=== PATIENT | female | born 1965 | race Caucasian/White ===

== ENCOUNTER → 2016-05-07 | Outpatient (CLI) | payer BC | END | disposition home or self-care (01) | LOC: C.LABSPEC 12:25 | PROVIDERS: ATTEND Family Medicine | DX: J02.9 Acute pharyngitis, unspecified (principal) ==

== ENCOUNTER 2023-07-31 05:08 | Observation (INO) ==
--- NOTE | 2023-07-15 13:02 | Anesthesiology Consultation ---
Date of Service July 15, 2023 Assessment & Plan (1) Encounter for pre-operative examination: - Infectious disease screening: Per assessment on 07/15/23: No known infectious disease contacts or current infectious disease symptoms. No noted recent Covid positive test result. - Outpatient joint pathway: Per OR booking comments, plan for outpatient joint program. Patient is an acceptable candidate to proceed as planned outpatient joint pathway pending perioperative course. Surgeon's office arranging post-op home management. - S/P Left TSA (04/17/23): LMA#4, atraumatic + regional at [facility] Chart Review Chart Review: Acceptable Risk for Surgery and Patient NOT seen in Pre Admission Testing History Surgery Operation Date: 07/31/23 10:00 Proposed Procedures p OP: Right Anatomic Total Shoulder Arthroplasty versus - Ho Barrera DO s Right Reverse Total Shoulder Arthroplasty - Ho Barrera DO Height/Weight Height: 5 ft 1 in Weight: 49.895 kg Allergies Allergy/AdvReac Type Severity Reaction Status Date / Time Penicillins Allergy Severe Anaphylaxis Verified 07/15/23 12:28 Medications Home Medications Medication Instructions Recorded Confirmed Last Taken multivitamin 1 tab PO QAM 03/06/23 07/15/23 04/10/23 Past Medical History Medical History History of UTI 05/2023, asymptomatic s/p completion of abx per PAT RN phone interview 07/15/23 Osteoarthritis of shoulders, bilateral Past Family History Family History Aunt Ovarian cancer Denies family history of Prostate cancer Diabetes Myocardial infarction Breast cancer Colorectal cancer Hypertension Past Surgical History Surgical History H/O section History of shoulder replacement Left TSA (04/17/23): LMA#4, atraumatic + regional at [facility] Hx of tonsillectomy Social History Smoking Status: Never smoker Do You Dip or Chew Tobacco: No Hx Alcohol Use: Yes Alcohol type: wine alcohol intake frequency: a few times a month Hx Substance Use: No substance use type: does not use Lab Results Anesthesia Preop Results Results Anesthesia Widget: WBC 7.82 K/ul (4.8-10.8) 06/30/23 Hgb 13.1 g/dl (12.0-16.0) 06/30/23 Hct 40.4 % (37.0-47.0) 06/30/23 Plt 207 K/uL (130-400) 06/30/23 Na 138 mmol/L (136-145) 06/30/23 K 3.8 mmol/L (3.5-5.1) 06/30/23 Cl 101 mmol/L (98-107) 06/30/23 CO2 30 mmol/L (21-32) 06/30/23 BUN 13 mg/dl (6-23) 06/30/23 Creat 0.61 mg/dl (0.6-1.2) 06/30/23 Glucose Level 94 mg/dl (70-99(Fasting)) 06/30/23 PT 10.6 Seconds (9.0-12.0) 06/30/23 PTT 31 Seconds (21-31) 06/30/23 INR 1.0 (0.9-1.1) 06/30/23 Blood Type O Positive 06/30/23 Antibody Screen NEGATIVE 06/30/23 Testing Electrocardiogram Date: 03/18/23 NSR at 79bpm. "Normal ECG" Chest X-Ray Date: 03/18/23 FINDINGS: Cardiomediastinal and hilar silhouettes are within normal limits. No pneumothorax, pleural effusion or airspace consolidation. Bones appear grossly intact. Degenerative changes of the shoulders and spine. IMPRESSION: No acute process.
--- NOTE | 2023-07-30 13:11 | History & Physical Report ---
Date of Service July 30, 2023 Assessment & Plan (1) Osteoarthritis of right shoulder: We will proceed with a right total shoulder arthroplasty. Postoperatively she will be placed in a sling and will be part of our outpatient joint protocol. She will be given oral pain medications. She plans to use energy physical therapy upon discharge. History of Present Illness Chief Complaint: Osteoarthritis of the right shoulder. Primary Care Provider: RICARDO Zayas Harper is a pleasant 57-year-old female who has been doing with chronic bilateral shoulder pain. I did a left shoulder replacement on her several months ago. She is done very well with that. Unfortunately she is now dealing with right shoulder pain. X-rays and clinical examination have been diagnostic for advanced arthritis of the right shoulder. After failing conservative treatment, she has elected to proceed with a right total shoulder arthroplasty.. Allergies Allergy/AdvReac Type Severity Reaction Status Date / Time Penicillins Allergy Severe Anaphylaxis Verified 07/15/23 12:28 Home Medications Medication Instructions Recorded Confirmed Type multivitamin 1 tab PO QAM 03/06/23 07/15/23 History Past Med/Surg History Medical History History of UTI 05/2023, asymptomatic s/p completion of abx per PAT RN phone interview 07/15/23 Osteoarthritis of shoulders, bilateral Surgical History History of shoulder replacement Left TSA (04/17/23): LMA#4, atraumatic + regional at [facility] Hx of tonsillectomy H/O section Family History Aunt Ovarian cancer Denies family history of Prostate cancer Diabetes Myocardial infarction Breast cancer Colorectal cancer Hypertension Social History Smoking Status: Never smoker Second Hand Exposure: No; Do You Dip or Chew Tobacco: No; Hx Alcohol Use: Yes Alcohol type: wine Hx Substance Use: No Preferred Language: Sinhala Communication Ability: Effective Nurse Practitioner Physician Assistant Required: No Beliefs That Will Affect Care: None marital status: Current Living Situation: Spouse and Family current occupational status: employed current occupation: Works for [employer] How many Children do You have: 2 Feels Safe at Home: Yes Childhood Exposure to Second-Hand Smoke: No Diet: regular caffeine: Yes Dental Care, Regularly: Yes Physical Activity Frequency: Daily Seatbelt Use: always Sunscreen Use: Yes Assistive Devices: Glasses Review of Systems All systems reviewed & are unremarkable except as noted in HPI & below. Physical Exam On physical examination of the right shoulder, she has decreased range of motion and crepitus throughout.. Constitutional WD/WN, vitals as above Eyes PERRL, conjunctivae normal, anicteric sclerae ENMT external ear and nose normal, oropharynx normal Neck trachea midline, no thyromegaly Respiratory normal respiratory effort Cardiovascular RRR, no murmur, no edema Gastrointestinal (Abdomen) normal bowel sounds, soft, nontender, no hepatosplenomegaly Psychiatric A+Ox3, euthymic affect Results & Data Results & Data Laboratory Results . Diagnostic Findings X-rays of the right shoulder show advanced osteoarthritis with joint space narrowing, osteophyte formation, and ixbz-fo-ehda articulation. PG Care Time/CCT Total # of Minutes Spent Total Time Spent with Patient: Total time spent is greater than 50% in coordination of care (as documented) at patient's floor/unit and/or counseling patient: Coding Level of Care Code None Diagnoses Osteoarthritis of right shoulder M19.011
[~2023-07-31 05:08] MED LIST: ALLERGY Noted to ORDERED Medication SCH
[2023-07-31] MEDS: LR 15ML/HR IV SCH (06:01)
[2023-07-31] MEDS: FAMOTIDINE 20 MG TAB PO SCH (06:02)
[2023-07-31] MEDS: GABAPENTIN 600 MG DOSE PO SCH (06:02)
[2023-07-31] MEDS: ACETAMINOPHEN 500 MG TAB PO SCH ×2 (06:03→15:19)
[2023-07-31] MEDS: dexAMETHasone**PF** 10 MG/ML VIAL IV SCH (06:04)
[2023-07-31] MEDS ORDERED: BUPIVACAINE 0.5 % 5 MG/1 ML PF 10ML VIAL ONE (06:13)
--- NOTE | 2023-07-31 06:19 | History & Physical Bridge Note ---
Date of Service July 31, 2023 History & Physical Bridge Note I have examined the patient, reviewed the History & Physical and in the interval since the performance of the History & Physical I have noted the following changes of clinical significance: no changes noted
[2023-07-31] MEDS ORDERED: PROPOFOL IV EMULSION 10 MG/ML 20 ML VIAL IV ONE (06:36)
[2023-07-31] MEDS ORDERED: fentaNYL citrate PF 100 MCG/2 ML VIAL ONE (06:36)
[2023-07-31] MEDS ORDERED: ONDANSETRON INJ 2 MG/ML 2 ML VIAL ONE (06:36)
[2023-07-31] MEDS ORDERED: DEXAMETHASONE SOD INJ 4 MG/ML VIAL ONE ×2 (06:36)
[2023-07-31] MEDS ORDERED: LIDOCAINE 2% 2 ML VIAL/AMP(20MG/ML) INFIL ONE (06:36)
[2023-07-31] MEDS ORDERED: MIDAZOLAM HCL 1 MG/ML 2ML VIAL ONE (06:36)
[2023-07-31] MEDS ORDERED: ATROPINE SULFATE 0.1 MG/ML 10ML SYR IV PRN (06:41)
[2023-07-31] MEDS ORDERED: fentaNYL citrate PF 100 MCG/2 ML VIAL IV PRN (06:41)
[2023-07-31] MEDS ORDERED: ePHEDrine sulfate 50 MG/ML AMP IV PRN (06:41)
[2023-07-31] MEDS ORDERED: ONDANSETRON INJ 2 MG/ML 2 ML VIAL IV PRN ×2 (06:41→12:37)
[2023-07-31] MEDS ORDERED: PROMETHAZINE HCL 6.25 MG in SODIUM CHLORIDE 0.9% 50 ML IV PRN (06:41)
[2023-07-31] MEDS: TRANEXAMIC ACID 1,000 MG **IV Pre-op IV SCH (06:44)
[2023-07-31] MEDS: ceFAZolin 2000MG 2,000 MG/15 ML SYR IV ONE (06:58)
[2023-07-31] MEDS ORDERED: PHENYLEPHRINE 100MCG/ML 10ML SYR IV ONE (07:12)
[2023-07-31] MEDS ORDERED: ePHEDrine sulfate 50 MG/5 ML SYR ONE (07:33)
[2023-07-31] MEDS: ROPIV 0.5% 246mg, Ketorolac 30mg, EPINEPHrine 0.5mg in NSS INFIL SCH (07:40)
[2023-07-31] MEDS: ceFAZolin 2,000 MG/15 ML IV PUSH IV ONE (07:41)
[2023-07-31] MEDS: TRANEXAMIC ACID 1,000 MG **IV Intra-op IV SCH (07:52)
[2023-07-31] MEDS ORDERED: KETOROLAC 30 MG/ML VIAL ONE (07:52)
[2023-07-31] MEDS ORDERED: SUGAMMADEX SODIUM 200 MG/2 ML VIAL IV ONE (07:54)
--- NOTE | 2023-07-31 08:06 | Operative Report ---
PG Post Operative Report Pre & Post Diagnosis Operation Date: 07/31/23 07:00 Pre-Op Diagnosis: Right Shoulder Osteoarthritis with tendinopathy long head of the biceps tendon Post-Op Diagnosis: Right Shoulder Osteoarthritis with tendinopathy long head of the biceps tendon I identified the patient and participated in the time-out.: Yes Procedure Operation Date: 07/31/23 07:00 Actual Procedures p Right Anatomic Total Shoulder Arthroplasty (Right) with open biceps tenodesis as a distinct and separate procedure (modifier 59)- Ho Barrera DO Surgeon Ho Barrera DO Automatic Oven Operator Ho Cohen PA-C Estimated Blood Loss 100 Findings Consistent with Post-Op Diagnosis Specimens Right humeral head Description of Procedure A CPT code modifier 59: The long head of the biceps tendon was enlarged and inflamed consistent with tendinopathy. A tenodesis was opted. This was a separate and distinct portion of the procedure. For these reasons, a CPT code modifier 59 will be added to this case. Implants used: I used a [employer] Comprehensive total shoulder arthroplasty system with a size 11 press fit micro humeral stem, a size 42 x 18 eccentric humeral head, and a 2 glenoid with a trabecular metal peg. The glenoid was cemented in place with Palacos G cement. Mirlande arrived at [facility] for the above procedure. She was seen in the preoperative holding area and the operative extremity was identified and signed. She was given a preoperative antibiotic, TXA, and an interscalene nerve block. She was taken back to the operating room, laid on table in supine position, and put under general anesthesia. She was then put into the beachchair position. The shoulder was then prepped and draped in sterile fashion. A timeout was done and the patient and the operative extremity was properly identified. A deltopectoral approach was used. Dissection was taken down through the fascia and the deltoid was retracted laterally and the conjoined tendon was retracted medially. The anterior shoulder was exposed. The biceps groove was opened up and the biceps tendon was examined extensively. The biceps tendon demonstrated enlargement and inflammatory changes consistent with longstanding inflammation in the context of osteoarthritis. The long head of the biceps tendon was then tenodesed to the upper border of the pectoralis major. This was a separate and distinct portion of the procedure. The subscapularis was then released off the lesser tuberosity with a centimeter of cuff tissue remaining. The inferior capsule was released and the humeral head was dislocated. The rotator cuff was inspected and intact. A canal finding reamer was sent down the center of the humeral canal. Sequential reaming up to a size 11 reamer was done. Offset reamer a proximal humeral resection guide was placed. The proximal humerus was resected at 135 of inclination and 30 of retroversion. Inferior osteophytes were then removed and the glenoid was exposed. Time was spent doing an appropriate labral release. The glenoid measured to be a size 2. A 3.2 mm Steinmann pin was placed in the central hole of the glenoid vault pin guide. The glenoid was then reamed with a propeller reamer. The central post cutter was then used to prepare for the central boss. The cannulated peripheral peg drill guide was then placed and 3 peg holes were drilled. The final size 2 glenoid was then cemented in place with Palacos G cement. Surrounding soft tissues were then injected with 100 cc of an orthopedic pain control cocktail. Once cement had dried the proximal humerus was once again exposed. Sequential broaching of the humerus up to a size 11 broach was done. Off that broach a size 42 x 18 eccentric humeral head was trialed. The shoulder was then reduced, brought through a full range of motion, and felt to be stable. The shoulder was then dislocated and the broach was removed. The final size 11 micro humeral stem implant was then impacted into place. A size 42 x 18 eccentric humeral head was then impacted onto the humeral stem. The shoulder was then reduced and once again brought through a full range of motion and felt to be stable. The subscapularis was then tenodesed back to the lesser tuberosity with transosseous FiberWire sutures and side to side sutures with the arm in 45 of external rotation. 2 sutures were placed in the lateral rotator interval. A dilute betadyne lavage was then done for 3 minutes. The joint was then irrigated with normal saline solution. Hemostasis was obtained. The interval was closed with 2-0 Vicryl suture. The skin was closed with 2-0 Vicryl and radha. A Silverlon dressing was placed and the arm was rested in a regular arm sling. She was then extubated and transferred to a hospital bed. She was taken to the postanesthesia care unit in stable condition. She tolerated the procedure well. Ho Cohen PA-C, was present for the entire procedure. He was critical for patient positioning, prepping, draping, retraction exposure, wound closure and application of sterile dressing. I attest to the content of the Intraoperative Record and any orders documented therein. Any exceptions are noted below.
[2023-07-31] MEDS ORDERED: oxyCODONE/ACETAMINOPHEN 5mg/325mg TAB PO PRN (08:21)
--- NOTE | 2023-07-31 09:13 | XRay Report ---
XR shoulder RT min 2V routine CLINICAL HISTORY: Post shoulder surgery COMPARISON STUDY: None. FINDINGS: Status post right total shoulder arthroplasty. The hardware appears intact. No fracture or dislocation. Skin rahda are in place. IMPRESSION: Status post right total shoulder arthroplasty. No evidence for hardware complication. ACT 112: Negative or not required by law. Electronically signed by: Ryan Thompson M.D. 07/31/2023 9:11 AM
--- NOTE | 2023-07-31 10:15 | Hospitalist Consultation ---
Date of Consultation July 31, 2023 Assessment & Plan (1) Acute electrocardiogram changes: While in PACU on monitor and tachycardic [id number] concern for ST depressions on monitor Baseline EKG from 03/18/2023: Normal sinus rhythm. QTc 417. Normal concordant T wave inversion in V1/aVR. Upright T wave in lead III. No ischemic changes or abnormalities noted Serial EKGs reviewed. These were obtained post 100 mg of esmolol with improved rate control. Sinus tach. QT 504 --> [address] segment ch anges greater than 1 mm. Patient does have T wave changes in the anterior leads, III, aVF. 2 November. Troponin is 2.3 while in PACU, 2-hour repeat troponin has been ordered Echo pending She has no symptoms at time of assessment and denies any chest pain/chest pressure/shortness of breath earlier postoperatively. She is able to go up stairs at work and at home and walk without any chest pain, chest pressure, dyspnea, diaphoresis suspicious for angina. She has no cardiac history, and has no history of hypertension/diabetes/tobacco use/recreational drug use. She has a family history of heart failure in [facility] [place] at age 80 otherwise no history of heart disease/ischemic heart disease in her family. No history of dysrhythmia, sudden cardiac , or heart problems. She is saturating normally on room air and has no history of blood clots/clotting disorders. No pleuritic pain. Recommend overnight monitoring on telemetry. BMP/CBC ordered and trended. Diet advanced. Nitro on-call for any symptoms, repeat EKG as needed otherwise we will repeat in the morning. Cardiology following. Sinus tachycardia postoperatively likely from sympathetic response. No signs of bleeding/hypovolemia. Labs are pending. She is not febrile, septic, or hypoxic. Responded well to 1 dose of esmolol in the PACU. If>130 w/ no signs of volume depletion as cause, or ischemic sx --> +MTP otherwise will monitor and expect to gradually improve. (2) Osteoarthritis of right shoulder: S/p right TKA 07/31/2023 S/p interscalene block and general with reversal. Has not yet had sensation/strength return to the right arm/hand No intraoperative complications Postoperatively with concerns for EKG ST changes with associated tachycardia while in the PACU managed as below Pain control, DVT prophylaxis, activity recommendations per primary team (3) Status post total replacement of left shoulder: Noted. Patient did not have any anesthetic complications or EKG changes noted at time of her left shoulder replacement in February History of Present Illness Attending Physician: Ho Barrera DO History of Present Illness Mirlande is a 57yo F with a PMHx of bilateral osteoarthritis of the shoulder who presentedFor right total shoulder arthroplasty with open biceps tenodesis due to right shoulder OA. Intraoperatively there was concern for ST changes? Depressions patient was recommended for overnight observation with medical consultation. Preoperative comparison EKG 03/18/2023 was normal sinus rhythm. Concordant T wave inversion in V1 without contiguous T wave inversions. No signs of territorial ischemia. Case was discussed with anesthesia. Patient presented and had a right total arthroplasty with interscalene block and general anesthesia followed by reversal. No operative complications and was doing well however in recovery was tachycardic to [id number] on the monitor. Rhythm was concerning for potential ST depressions on monitor, patient received esmolol 100mg IV x1. Rate subsequently with improvement. Twelve-lead EKG was obtained And had concerning T wave changes? Anterior ischemia and a conduction change which was discussed with cardiology anesthesia. Twelve-lead EKG did appear d ifferent from her baseline and was recommended for observation. Patient has been asymptomatic and has not had any chest pain, chest pressure, dyspnea. Patient was seen in the PACU . She reports that she has no medical history of problems other than osteoarthritis for which she is taking Tylenol intermittently and for which she presented for right shoulder replacement. She reports in February she had her left shoulder replacement and tolerated this well and had no difficulty with anesthesia at that time. She reports she does not have any history of heart disease. She plays with 3 grandchildren and is able to go up 13 stairs and flights of stairs at work, and able to walk normally without any shortness of breath, difficulty breathing, sweats, chest pain, or chest pressure. She has not had any orthopnea. She has not had any leg swelling. She reports a family history of heart failure in her maternal grandmother in her 80s, however has no other family history of cardiac disease. Denies personal and family history of diabetes. Reports a family history of whitecoat hypertension in her mother otherwise no history of blood pressure problems. Denies history of blood clots and denies family history of bleeding/clotting disorders She is allergic to penicillin no other drug allergies She does not use any tobacco products, drinks socially and small amounts for moderation on weekends, and does not use any recreational drugs including marijuana/cocaine. She had a UTI 1 month ago which was initially treated with Bactrim and transition to Cipro based on sensitivities which has completely resolved, denies other illnesses. She denies fever, chills, sweats, cough, shortness of breath, muscle aches/myalgias, nausea, vomiting, diarrhea, constipation. She reports she takes no prescription medications. She takes some supplemental vitamins. She used to use a natural herbal remedy for hot flashes but has not taken this in several weeks. She is not sure the exact name of what this remedy was but notes she has not been on it in some time. Full code Allergies Allergy/AdvReac Type Severity Reaction Status Date / Time Penicillins Allergy Severe Anaphylaxis Verified 07/31/23 05:38 Home Medications Medication Instructions Recorded Confirmed Type multivitamin 1 tab PO QAM 03/06/23 07/31/23 History cefadroxil 500 mg capsule 500 mg PO BID 10 days #20 caps 07/31/23 Rx celecoxib 200 mg capsule (Celebrex) 200 mg PO Q12H PRN pain #30 caps 07/31/23 Rx oxycodone-acetaminophen 5 mg-325 1 tab PO Q6H PRN pain #30 tabs 07/31/23 Rx mg tablet (Percocet) Patient History Medical History History of UTI 05/2023, asymptomatic s/p completion of abx per PAT RN phone interview 07/15/23 Osteoarthritis of shoulders, bilateral Surgical History History of shoulder replacement Left TSA (04/17/23): LMA#4, atraumatic + regional at [facility] Hx of tonsillectomy H/O section Family History Aunt Ovarian cancer Denies family history of Prostate cancer Diabetes Myocardial infarction Breast cancer Colorectal cancer Hypertension Social History Smoking Status: Never smoker Second Hand Exposure: No; Do You Dip or Chew Tobacco: No; Hx Alcohol Use: No Hx Substance Use: No Preferred Language: Lithuanian Communication Ability: Effective Front Office Representative Required: No Beliefs That Will Affect Care: None marital status: Current Living Situation: Spouse current occupational status: employed current occupation: Works for [employer] How many Children do You have: 2 Feels Safe at Home: Yes Safety Concerns: Feels Safe At This Time Childhood Exposure to Second-Hand Smoke: No Diet: regular caffeine: Yes Dental Care, Regularly: Yes Physical Activity Frequency: Daily Seatbelt Use: always Sunscreen Use: Yes Assistive Devices: Glasses Physical Exam Physical Exam: General: A&Ox3. NAD. Cooperative. HEENT: Atraumatic, normocephalic. Vision/hearing intact. Pupils equal. Pulm: CTAB A&P. -wheezes, -rales, -rhonchi. Symmetrical chest rise. No increased work of breathing. No respiratory distress. Cardiac: RRR, -mrg. Radial pulses intact and symmetrical. Ext: LE warm and dry bilaterally no pitting edema. L hand with 5/5 calf skinner strength, intact sensation to soft tough. R hand without strength/sensation post interscalene block. Has not yet had strength/sensation return. R shoulder with postop dressing in place CDI and arm in sling. Results & Data Results & Data Vital Signs (Past 12 Hours) Vital Signs Temp Pulse Pulse Resp BP Pulse Ox O2 Del Method 07/31/23 09:55 105 H 17 122/73 97 Room Air 07/31/23 09:45 36.4 C L 95 H 18 115/73 96 Room Air 07/31/23 09:35 98 H 18 114/73 98 Room Air 07/31/23 09:25 101 H 13 112/73 98 Room Air 07/31/23 09:15 97 H 12 113/67 94 Room Air 07/31/23 09:05 97 H 13 114/72 98 Room Air 07/31/23 08:55 97 H 13 119/74 99 Room Air 07/31/23 08:45 100 H 16 124/75 97 Oxymask 07/31/23 08:35 93 H 14 118/66 100 Oxymask 07/31/23 08:26 36 C L 119 H 75 21 107/81 100 Oxymask 07/31/23 05:52 36.6 C 75 17 117/70 100 Room Air O2 Flow Rate 07/31/23 09:55 07/31/23 09:45 07/31/23 09:35 07/31/23 09:25 07/31/23 09:15 07/31/23 09:05 07/31/23 08:55 07/31/23 08:45 3 07/31/23 08:35 6 07/31/23 08:26 6 07/31/23 05:52 PG Care Time/CCT Total # of Minutes Spent Total Time Spent with Patient: Total time spent is greater than 50% in coordination of care (as documented) at patient's floor/unit and/or counseling patient: Coding Level of Care Code 82353 IN/OBS CONSULT LVL 4,60M Diagnoses Acute electrocardiogram changes R94.31 Osteoarthritis of right shoulder M19.011 Status post total replacement of left shoulder Z96.612
[2023-07-31] MEDS ORDERED: NITROGLYCERIN SL 0.4 MG/TAB TAB SL PRN (10:51)
[2023-07-31 12:10] LABS: Hematocrit (blood only) 37.5 % (37.0-47.0); Hemoglobin 12.7 g/dl (12.0-16.0); Mean Corpuscular Hemoglobin 30.5 pg (25.0-34.0); Mean Corpuscular Hgb Conc 33.9 g/dL (32.0-36.0); Mean Corpuscular Volume 89.9 fL (80.0-100.0); Mean Platelet Volume 10.7 fL (9.4-12.4); Platelet Count 214 K/uL (130-400); RDW Coefficient of Variation 13.6 % (11.5-14.5); RDW Standard Deviation 45.1 fL (36.4-46.3); Red Blood Count 4.17 M/uL (4.20-5.40); White Blood Count 10.59 K/ul (4.8-10.8)
[2023-07-31 12:37] LABS: Basophils # (auto) 0.01 K/uL (0.00-0.20); Basophils % (auto) 0.1 %; Immature Granulocytes # (auto) 0.03 K/uL (0.01-0.20); Immature Granulocytes % (auto) 0.3 %; Lymphocytes # (auto) 0.35 K/uL (1.20-3.40); Lymphocytes % (auto) 3.3 %; Monocytes # (auto) 0.11 K/uL (0.11-0.59); Neutrophils # (auto) 10.09 K/uL (1.40-6.50); Neutrophils % (auto) 95.3 %
[2023-07-31] MEDS ORDERED: NALOXONE HCL 0.4 MG/1 ML VIAL/CARP IV PRN (12:37)
[2023-07-31] MEDS ORDERED: bisacodyL 10 MG SUPP PR PRN (12:37)
[2023-07-31] MEDS ORDERED: MAGNESIUM HYDROXIDE SUSP 30 ML UDC PO PRN (12:37)
[2023-07-31] MEDS ORDERED: HYDROmorphone INJ 0.5 MG/0.5 ML SYR IV PRN (12:37)
[2023-07-31] MEDS ORDERED: METOCLOPRAMIDE HCL INJ 5 MG/ML 2 ML VIAL IV PRN (12:37)
[2023-07-31 12:39] LABS: BUN Creatinine Ratio 21.2 (10-20); Calcium 9.1 mg/dl (8.6-10.3); Creatinine Clr Calc Pharmacy 71.8 ml/min; Est GFR (African American) 114.5 ml/min; Est GFR (Non-African American) 98.8 ml/min; Magnesium 1.9 mg/dl (1.7-2.4)
[2023-07-31] MEDS: ESMOLOL HCL INJ 10 MG/ML 10ML VIAL IV ONE (12:45)
[2023-07-31] MEDS: SODIUM CHLORIDE 0.9% 1,000 ML IV SCH (12:45)
[2023-07-31] MEDS: ORTHO JOINT ANESTHETIC ONE (12:45)
--- NOTE | 2023-07-31 12:52 | Anesthesiology Progress Note ---
Date of Service July 31, 2023 Anesthesia Post Procedure Vital Signs Vital Signs: Temp Pulse Pulse Resp BP Pulse Ox O2 Del Method 07/31/23 12:43 37.0 C 111 H 15 104/67 93 Room Air 07/31/23 12:05 108 H 16 113/65 95 Room Air 07/31/23 11:35 113 H 16 115/73 95 Room Air 07/31/23 10:55 112 H 16 128/81 94 Room Air 07/31/23 10:40 113 H 20 116/74 96 Room Air 07/31/23 10:25 110 H 15 127/75 97 Room Air 07/31/23 10:10 100 H 13 115/74 95 Room Air 07/31/23 09:55 105 H 17 122/73 97 Room Air 07/31/23 09:45 36.4 C L 95 H 18 115/73 96 Room Air 07/31/23 09:35 98 H 18 114/73 98 Room Air 07/31/23 09:25 101 H 13 112/73 98 Room Air 07/31/23 09:15 97 H 12 113/67 94 Room Air 07/31/23 09:05 97 H 13 114/72 98 Room Air 07/31/23 08:55 97 H 13 119/74 99 Room Air 07/31/23 08:45 100 H 16 124/75 97 Oxymask 07/31/23 08:35 93 H 14 118/66 100 Oxymask 07/31/23 08:26 36 C L 119 H 75 21 107/81 100 Oxymask 07/31/23 05:52 36.6 C 75 17 117/70 100 Room Air O2 Flow Rate 07/31/23 12:43 07/31/23 12:05 07/31/23 11:35 07/31/23 10:55 07/31/23 10:40 07/31/23 10:25 07/31/23 10:10 07/31/23 09:55 07/31/23 09:45 07/31/23 09:35 07/31/23 09:25 07/31/23 09:15 07/31/23 09:05 07/31/23 08:55 07/31/23 08:45 3 07/31/23 08:35 6 07/31/23 08:26 6 07/31/23 05:52 Transfer of Care Handoff Completed per policy Notes Mental Status: alert / awake / arousable and participated in evaluation Patient Amnestic to Procedure: Yes Nausea / Vomiting: adequately controlled Pain: adequately controlled Airway Patency, RR, SpO2: stable & adequate BP & HR: see Notes below Hydration State: stable & adequate Anesthetic Complications: no major complications apparent, see Notes below and Pt Satisfied with anesthetic care Notes: Patient had an uneventful surgery and anesthetic to include general anesthesia and an interscalene nerve block. In recovery, EARLY CHILDHOOD TEACHER ASSISTANT noted patient was mildly tachycardic with what appeared to be ST depressions on monitor. Esmolol was given and ECG completed. ECG showed prolonged QT and slight change when compared to previous ECG done in February 2023 (new ECG from today showing possible ischemic changes). Patient denied any chest pain/pressure/SOB/vision changes/dizziness/lightheadedness. Re-examined patient 20 min later and HR in low 100's and another ECG done. QT not as prolonged but still showing ECG changes. Briefly spoke to on-call [facility] graduate fellow and he suggested patient have inpatient stay with trending of troponins and hospitalist input as patient could get an inpatient echo. She will be placed on continuous telemetry and she agreed to plan. was updated and all questions were answered. Patient was transferred in stable condition.
[2023-07-31] MEDS: LR 60ML/HR IV SCH (13:01)
[2023-07-31] MEDS: ceFAZolin 2000MG 2,000 MG/15 ML SYR IV SCH (15:19)
--- NOTE | 2023-07-31 17:31 | XCELERA ---
[id number]
--- NOTE | 2023-07-31 17:40 | Cardiology Consultation ---
Date of Consultation July 31, 2023 Assessment & Plan (1) Acute electrocardiogram changes: (2) Prolonged QT interval: Plan ASSESSMENT/PLAN: 1. ECG abnormality/change: Discussed findings on ECG. No symptoms to suggest heart failure or ischemia. Propofol and Sugammadex can both cause ST changes and prolonged QT. It is likely that her ECG changes are related to medications used around the time of her surgery. Electrolytes were unremarkable. High- sensitivity troponin has been undetectable x 3. Echo demonstrated no structural abnormalities. Can repeat ECG in the morning and if no symptoms or remarkable events, no further cardiac workup necessary at this time. 2. Prolonged QT: Repeat ECG in the morning on 08/01/2023. Avoid medications that can prolong QT. No arrhythmia on monitor. Baseline QT was normal. Likely related to medical therapy such as propofol and sugammadex. 3. Disposition: Cardiology will sign off at this time. Call for any further questions or concerns. I am away from the hospital after 5 PM on 07/31/2023. Please call on-call cardiology with questions or concerns. Thank you for allowing me to participate in the care of your patient. Please call for any other questions or concerns. Sincerely, Rommel Isreal M.D. History of Present Illness Reason for Consultation: post op ECG changes Requesting Physician: Ho Cohen PA-C Attending Physician: Ho Barrera DO History of Present Illness Mrs. Martinez is a very pleasant 57-year-old female who was admitted on 07/31/2023 following elective right shoulder surgery with Dr. Barrera. Following surgery, anesthesia noted ST changes on telemetry. ECG was done which demonstrated sinus rhythm but inferior and anterior ST/T wave abnormalities, with prolonged QT. QT and ST/T wave abnormalities or different compared to preop ECG. She was admitted for observation. Recommended that they obtain echocardiogram, which was performed. Serial troponins were also ordered. She denies chest pain, shortness of breath, or other cardiac symptoms at that time. She states that even preop, she denies chest pain, shortness of breath, syncope, near syncope, palpitations, edema, or bleeding. She does not exercise but is active, including up and down stairs at work. She is able to do these activities without chest pain or shortness of breath. Patient was seen earlier this evening. Review of systems: As above. Review of systems otherwise negative/unremarkable. Family history: No known premature CAD. Social history: She denies smoking. Consumes alcohol most days of the week, 1 t o 2 glasses of wine during the weekdays and more on the weekends. She denies drug abuse. She lives at home with her . She has a son and a daughter. She works at a school. Her was present at the bedside. Allergies Allergy/AdvReac Type Severity Reaction Status Date / Time Penicillins Allergy Severe Anaphylaxis Verified 07/31/23 05:38 Home Medications Medication Instructions Recorded Confirmed Type multivitamin 1 tab PO QAM 03/06/23 07/31/23 History cefadroxil 500 mg capsule 500 mg PO BID 10 days #20 caps 07/31/23 Rx celecoxib 200 mg capsule (Celebrex) 200 mg PO Q12H PRN pain #30 caps 07/31/23 Rx oxycodone-acetaminophen 5 mg-325 1 tab PO Q6H PRN pain #30 tabs 07/31/23 Rx mg tablet (Percocet) Patient History Medical History History of UTI 05/2023, asymptomatic s/p completion of abx per PAT RN phone interview 07/15/23 Osteoarthritis of shoulders, bilateral Surgical History History of shoulder replacement Left TSA (04/17/23): LMA#4, atraumatic + regional at [facility] Hx of tonsillectomy H/O section Family History Aunt Ovarian cancer Denies family history of Prostate cancer Diabetes Myocardial infarction Breast cancer Colorectal cancer Hypertension Social History Smoking Status: Never smoker Second Hand Exposure: No; Do You Dip or Chew Tobacco: No; Hx Alcohol Use: No Hx Substance Use: No Preferred Language: Lao Communication Ability: Effective Insurance Executive Required: No Beliefs That Will Affect Care: None marital status: Current Living Situation: Spouse current occupational status: employed current occupation: Works for [employer] How many Children do You have: 2 Feels Safe at Home: Yes Safety Concerns: Feels Safe At This Time Childhood Exposure to Second-Hand Smoke: No Diet: regular caffeine: Yes Dental Care, Regularly: Yes Physical Activity Frequency: Daily Seatbelt Use: always Sunscreen Use: Yes Assistive Devices: Glasses Physical Exam Physical Exam: Gen.: No acute distress. Alert and oriented. HEENT: Anicteric sclera. Neck: No JVD. No bruits. Normal carotid upstrokes bilaterally. Cardiac: No ventricular heave. Regular. Normal S1-S2. No murmurs, rubs, or gallops. Pulmonary: Clear to auscultation bilaterally without wheezes, rales, or rhonchi. Abdomen: Soft, nontender, nondistended, with normoactive bowel sounds. No bruits noted. Extremities: 2+ radial pulses bilaterally. 2+ posterior tibialis pulses bilaterally. No edema or cyanosis. Psychiatric: Affect appears appropriate. Results & Data Vital Signs (Past 12 Hours) Vital Signs Temp Pulse Pulse Resp BP Pulse Ox O2 Del Method 07/31/23 16:08 36.8 C 106 H 16 102/63 95 Room Air 07/31/23 12:43 37.0 C 111 H 15 104/67 93 Room Air 07/31/23 12:05 108 H 16 113/65 95 Room Air 07/31/23 11:35 113 H 16 115/73 95 Room Air 07/31/23 10:55 112 H 16 128/81 94 Room Air 07/31/23 10:40 113 H 20 116/74 96 Room Air 07/31/23 10:25 110 H 15 127/75 97 Room Air 07/31/23 10:10 100 H 13 115/74 95 Room Air 07/31/23 09:55 105 H 17 122/73 97 Room Air 07/31/23 09:45 36.4 C L 95 H 18 115/73 96 Room Air 07/31/23 09:35 98 H 18 114/73 98 Room Air 07/31/23 09:25 101 H 13 112/73 98 Room Air 07/31/23 09:15 97 H 12 113/67 94 Room Air 07/31/23 09:05 97 H 13 114/72 98 Room Air 07/31/23 08:55 97 H 13 119/74 99 Room Air 07/31/23 08:45 100 H 16 124/75 97 Oxymask 07/31/23 08:35 93 H 14 118/66 100 Oxymask 07/31/23 08:26 36 C L 119 H 75 21 107/81 100 Oxymask 07/31/23 05:52 36.6 C 75 17 117/70 100 Room Air O2 Flow Rate 07/31/23 16:08 07/31/23 12:43 07/31/23 12:05 07/31/23 11:35 07/31/23 10:55 07/31/23 10:40 07/31/23 10:25 07/31/23 10:10 07/31/23 09:55 07/31/23 09:45 07/31/23 09:35 07/31/23 09:25 07/31/23 09:15 07/31/23 09:05 07/31/23 08:55 07/31/23 08:45 3 07/31/23 08:35 6 07/31/23 08:26 6 07/31/23 05:52 Laboratory Results Laboratory Results - last 24 hr 07/31/23 07/31/23 10:10 11:46 WBC 10.59 RBC 4.17 L Hgb 12.7 Hct 37.5 MCV 89.9 MCH 30.5 MCHC 33.9 RDW Std Deviation 45.1 RDW Coeff of Meagan 13.6 Plt Count 214 MPV 10.7 Immature Gran % (Auto) 0.3 Neut % (Auto) 95.3 Lymph % (Auto) 3.3 [place] % (Auto) 1.0 Eos % (Auto) 0.0 Baso % (Auto) 0.1 Neut # (Auto) 10.09 H Lymph # (Auto) 0.35 L [place] # (Auto) 0.11 Eos # (Auto) 0.00 Baso # (Auto) 0.01 Immature Gran # (Auto) 0.03 Sodium 139 Potassium 4.0 Chloride 108 H Carbon Dioxide 24 Anion Gap 7 BUN 14 Creatinine 0.66 Est Cr Clr Drug Dosing 71.8 Est GFR ( Amer) 114.5 Est GFR (Non-Af Amer) 98.8 BUN/Creatinine Ratio 21.2 H Glucose 139 H Calcium 9.1 Magnesium 1.9 Troponin I High Sens < 2.3 < 2.3 Diagnostic Findings Telemetry personally reviewed: No arrhythmia. Sinus rhythm. ECGs personally reviewed: ECG 07/31/2023 8:35 AM: NSR [address] and anterior [address]/T wave abnormalities. Prolonged QT. ECG 07/31/2023 at 8:54 AM: NSR [address] and anterior [address]/T wave abnormality. Prolonged QT. ECG 03/18/2023 at 9:41 AM: NSR 79 bpm. Normal ECG. Echo 07/31/2023: Normal LV size, wall motion, systolic function. EF 60 to 65%. Mild LVH. No significant valvular abnormalities. Labs reviewed and notable for normal potassium, normal renal function, normal blood counts, normal magnesium. Medicine consult report reviewed. Operative note reviewed from 07/31/2023. Medications Administered Current Inpatient Medications Acetaminophen (Acetaminophen 500 Mg Tab) 1,000 mg PO Q8 NYDIA Stop: 08/30/23 13:59 Last Admin: 07/31/23 15:19 Dose: 1,000 mg Bisacodyl (Bisacodyl 10 Mg Supp) [address] DAILY PRN PRN Reason: Constipation Stop: 08/30/23 12:36 Dexamethasone (Dexamethasone 4 Mg Tab) 8 mg PO TODAY@08 NYDIA Stop: 08/01/23 08:01 Docusate Sodium (Docusate Sodium 100 Mg Cap) 100 mg PO BID NYDIA Stop: 08/30/23 20:59 Hydromorphone HCl (Hydromorphone Inj 0.5 Mg/0.5 Ml Syr) 0.5 mg IV Q4H PRN PRN Reason: Pain or Pre PT Stop: 08/14/23 12:36 Sodium Chloride (Nss) 1,000 mls @ 100 mls/hr IV .Q10H NYDIA Stop: 08/01/23 06:00 Last Admin: 07/31/23 12:45 Dose: Not Given Cefazolin Sodium (Ancef 2000mg) 2,000 mg in 15 mls @ 3.75 mls/min IV Q8H NYDIA; Protocol Stop: 07/31/23 23:03 Last Admin: 07/31/23 15:19 Dose: 3.75 mls/min Magnesium Hydroxide (Magnesium Hydroxide Susp 30 Ml Udc) 30 ml PO Q6H PRN PRN Reason: Constipation Stop: 08/30/23 12:36 Metoclopramide HCl (Metoclopramide Hcl Inj 5 Mg/Ml 2 Ml Vial) 10 mg IV Q6H PRN PRN Reason: Nausea And Vomiting Stop: 08/30/23 12:36 Multivitamins (Multivitamin Tab) 1 tab PO QAM NYDIA Stop: 08/31/23 08:59 Naloxone HCl (Naloxone Hcl 0.4 Mg/1 Ml Vial/Carp) 0.1 mg IV Q5M PRN PRN Reason: Oversedation/Resp Depression Stop: 08/30/23 12:36 Nitroglycerin (Nitroglycerin Sl 0.4 Mg/Tab Tab) 0.4 mg SL Q5M PRN PRN Reason: Chest Pain Stop: 08/30/23 10:50 Ondansetron HCl (Ondansetron Inj 2 Mg/Ml 2 Ml Vial) 4 mg IV Q6H PRN PRN Reason: Nausea And Vomiting Stop: 08/30/23 12:36 Oxycodone HCl (Oxycodone Hcl Ir 5 Mg Tab (Immediate Release)) 5 - 10 mg PO Q4H PRN PRN Reason: Pain or Pre PT Stop: 08/14/23 12:36 Sennosides (Senna 8.6 Mg Tab) 17.2 mg PO [facility] Stop: 08/30/23 20:59 PG Care Time/CCT Total # of Minutes Spent Total Time Spent with Patient: Total time spent is greater than 50% in coordination of care (as documented) at patient's floor/unit and/or counseling patient: Coding Level of Care Code 80375 IN/OBS CONSULT LVL 4,60M Diagnoses Acute electrocardiogram changes R94.31 Prolonged QT interval R94.31
[2023-07-31] MEDS: SENNA 8.6 MG TAB PO SCH (19:29)
[2023-07-31] MEDS: DOCUSATE SODIUM 100 MG CAP PO SCH (19:29)
--- NOTE | 2023-07-31 21:57 | Electrocardiogram Report ---
Test Reason : Blood Pressure : / mmHG Vent. Rate : 092 BPM Atrial Rate : 092 BPM P-R Int : 200 ms QRS Dur : 094 ms QT Int : 408 ms P-R-T Axes : 060 068 -28 degrees QTc Int : 504 ms Normal sinus rhythm Septal T wave abnormality, consider inferior ischemia Prolonged QT Abnormal ECG When compared with ECG of 18-MAR-2023 09:41, T wave inversion now evident in Inferior leads Inverted T waves have replaced nonspecific T wave abnormality in Anterior leads QT has lengthened Confirmed by Ernie Israel ([id number]) on 07/31/2023 9:56:29 PM Referred By: Ho Barrera Confirmed By:Ernie Israel
--- NOTE | 2023-07-31 21:57 | Electrocardiogram Report ---
Test Reason : Blood Pressure : / mmHG Vent. Rate : 096 BPM Atrial Rate : 096 BPM P-R Int : 176 ms QRS Dur : 094 ms QT Int : 384 ms P-R-T Axes : 055 067 -17 degrees QTc Int : 485 ms Normal sinus rhythm Cannot rule out Inferior infarct , age undetermined Nonspecific ST and T wave abnormality T wave abnormality, consider inferior ischemia Prolonged QT Abnormal ECG When compared with ECG of 31-JUL-2023 08:35, No significant change was found Confirmed by Ernie Israel ([id number]) on 07/31/2023 9:57:04 PM Referred By: Ho Barrera Confirmed By:Ernie Israel
[2023-07-31] MEDS: LACTATED RINGER'S 1,000 ML IV ONE (22:32)
[2023-08-01 06:16] LABS: Basophils # (auto) 0.01 K/uL (0.00-0.20); Basophils % (auto) 0.1 %; Eosinophils # (auto) 0.04 K/uL (0.00-0.50); Eosinophils % (auto) 0.5 %; Hematocrit (blood only) 33.6 % (37.0-47.0); Hemoglobin 11.2 g/dl (12.0-16.0); Immature Granulocytes # (auto) 0.02 K/uL (0.01-0.20); Immature Granulocytes % (auto) 0.3 %; Lymphocytes # (auto) 1.73 K/uL (1.20-3.40); Lymphocytes % (auto) 22.9 %; Mean Corpuscular Hemoglobin 30.7 pg (25.0-34.0); Mean Corpuscular Hgb Conc 33.3 g/dL (32.0-36.0); Mean Corpuscular Volume 92.1 fL (80.0-100.0); Mean Platelet Volume 10.4 fL (9.4-12.4); Monocytes # (auto) 0.61 K/uL (0.11-0.59); Monocytes % (auto) 8.1 %; Neutrophils # (auto) 5.14 K/uL (1.40-6.50); Neutrophils % (auto) 68.1 %; Platelet Count 157 K/uL (130-400); RDW Coefficient of Variation 13.9 % (11.5-14.5); RDW Standard Deviation 47.5 fL (36.4-46.3); Red Blood Count 3.65 M/uL (4.20-5.40); White Blood Count 7.55 K/ul (4.8-10.8)
[2023-08-01] MEDS: oxyCODONE HCL IR 5 MG TAB (IMMEDIATE RELEASE) PO PRN (06:36)
[2023-08-01 06:40] LABS: BUN Creatinine Ratio 18.5 (10-20); Calcium 8.7 mg/dl (8.6-10.3); Creatinine Clr Calc Pharmacy 72.9 ml/min; Est GFR (Non-African American) 99.2 ml/min; Phosphorus 3.4 mg/dl (2.5-4.9); Potassium 3.8 mmol/L (3.5-5.1)
--- NOTE | 2023-08-01 07:06 | Electrocardiogram Report ---
Test Reason : Blood Pressure : / mmHG Vent. Rate : 100 BPM Atrial Rate : 100 BPM P-R Int : 178 ms QRS Dur : 084 ms QT Int : 348 ms P-R-T Axes : 053 065 025 degrees QTc Int : 448 ms Normal sinus rhythm Nonspecific ST abnormality Abnormal ECG When compared with ECG of 31-JUL-2023 08:54, Nonspecific T wave abnormality has replaced inverted T waves in Inferior leads Confirmed by Miguel Angel Marks ([id number]) on 08/01/2023 7:06:25 AM Referred By: Ho Barrera Confirmed By:Calvin Marks
--- NOTE | 2023-08-01 07:59 | Orthopedic Progress Note ---
Date of Service August 01, 2023 Assessment & Plan (1) Status post replacement of right shoulder joint: Overall she is doing fairly well. She had the echocardiogram yesterday which did not show any ischemic changes. She has been followed by the hospitalist. She will be seen by physical therapy today for ambulation and range of motion exercises. She is orthopedically stable for discharge if it is okay with the hospitalist. She will follow-up with orthopedics in 2 weeks. Amandeep Nogueira was seen and examined at bedside this morning. Overall she is doing well. She is not having much shoulder pain. She had an echocardiogram yesterday. She feels fine. She has no complaints.. Review of Systems All systems reviewed & are unremarkable except as noted in HPI & below. Physical Exam On physical examination of the right shoulder, the dressing is clean and dry. She is wearing her sling as instructed. She has active motion of her hand and her wrist.. Results & Data Results & Data Laboratory Results . Diagnostic Findings Postoperative x-rays of the right shoulder show the prosthesis to be in anatomic alignment without any evidence of fracture complication, or loosening.. PG Care Time/CCT Total # of Minutes Spent Total Time Spent with Patient: Total time spent is greater than 50% in coordination of care (as documented) at patient's floor/unit and/or counseling patient: Coding Level of Care Code 90431 Post Operative Follow-Up Diagnoses Status post replacement of right shoulder joint Z96.611
--- NOTE | 2023-08-01 08:01 | Discharge Summary ---
Date of Service August 01, 2023 Admission HPI (Per Admitting) Harper is a pleasant 57-year-old female who has been doing with chronic bilateral shoulder pain. I did a left shoulder replacement on her several months ago. She is done very well with that. Unfortunately she is now dealing with right shoulder pain. X-rays and clinical examination have been diagnostic for advanced arthritis of the right shoulder. After failing conservative treatment, she has elected to proceed with a right total shoulder arthroplasty.. Admission Exam (Per Admitting) On physical examination of the right shoulder, she has decreased range of motion and crepitus throughout.. Principal Diagnosis Same as "Discharge Diagnosis" noted below under Discharge Instructions. Discharge Exam On physical examination of the right shoulder, the dressing is clean and dry. She is wearing her sling as instructed. She has active motion of her hand and her wrist.. Discharge Data Consultations 07/31/23 10:34 Consult Cardiology Routine Procedures Performed Operation Date: 07/31/23 07:00 Actual Procedures p Right Anatomic Total Shoulder Arthroplasty (Right) - Ho Barrera DO Ordered Studies 07/31/23 05:00 US - OR guided needle placemen Routine Hospital Course (1) Status post replacement of right shoulder joint: On July 31, 2023 Mirlande arrived at [facility] and underwent a right shoulder replacement without complication. She had a general anesthetic and a right interscalene nerve block. Postoperatively, she was having some prolonged QT intervals on her EKG. The hospitalist and cardiology were consulted. She was placed on a heart monitor bed. Overall she was doing well. She was not having much pain in her shoulder. She was asymptomatic with her cardiac status. An echocardiogram was done which was read as no ischemic events. On postop day #1, she was feeling well. She was not having much pain in the right shoulder. She was seen by physical therapy and able to participate with ambulation and range of motion exercises. She was seen by the hospitalist as well. She was discharged home. She will follow-up with orthopedics in 2 weeks. PG Care Time/CCT Total # of Minutes Spent Total Time Spent with Patient: Total time spent is greater than 50% in coordination of care (as documented) at patient's floor/unit and/or counseling patient: Discharge Plan Discharge Items Patient Disposition: Home - Self-Care Reason For Visit: Right Shoulder Degenerative Joint Disease Discharge Diagnosis: same as above Activity: Per Instructions section Non-emergency contact: Surgeon Call non-emergency contact if: your temperature is above 101.5, your wound has increased redness and your wound has increased drainage Follow-up/Referrals: [facility] [Outside] (as per surgeon's office ) Berenice Mcdermott CRNP [Primary Care Provider] - Diet: Regular Addtl Attending Provider Instructions: Activity and Therapy Recommendations: * If you are using [facility] then therapy will be provided at your home until they feel you have accomplished all of your goals. * If you are using [facility] then Physical Therapy will be provided until they feel you are ready to start Outpatient Physical Therapy. * If you are not using home therapy then Outpatient Physical Therapy should start about 3-5 days from your day of surgery. Therapy will last about 8-12 weeks * Wear your sling for 3 weeks, unless otherwise instructed. You may remove your sling to shower and to dress, but otherwise, you should be in your sling at all times, including while sleeping * The shoulder replacement is very stable and you can use your hand while in the sling * You were shown a series of exercises in the hospital. Do these exercises daily including the exercises you were shown in physical therapy. Medications: * Narcotic You will likely be sent home from the hospital with a prescription for the narcotic pain medication that worked best throughout your stay. * You will be prescribed an antibiotic called Cefadroxil. Take it as directed and to completion * Other medications may be prescribed for specific circumstances. If you have any questions, please call the office at . * Resume previous home medications unless otherwise instructed Dressing Care: Leave the Silverlon dressing in place for 7 days. After 7 days you may remove the dressing. If the incision is not draining then you may leave the radha open to air. If there is a little bit of drainage or if the radha are getting stuck on your clothing then cover the incision with a dry dressing. The radha will be removed at your 2 week follow-up appointment. Showering: You may shower with the Silverlon dressing in place. Do not let the shower spray hit the dressing directly. Pat the Silverlon dressing dry. If the dressing becomes wet underneath, then simply remove the dressing. Keep the incision dry until you are 7 days out from the day of surgery. After 7 days you may remove the Silverlon dressing and shower with the radha exposed. Let soapy water run over the radha and pat them dry. Do not scrub or soak the incision. Things To Watch For: * Drainage from the incision site that occurs more than one week after your surgery. * Increased redness at the incision site. * Fever above 102 degrees Fahrenheit. * Unusual chest pain or shortness of breath. * Call [facility] at with any of the above problems Follow-Up Visit: Follow-up with Dr. Barrera's PA (Ho Cohen) 2-3 weeks after your day of surgery. He will remove your radha and answer any questions. If you have any additional questions or concerns, Dr Barrera is usually in the office at the same time and will be available An appointment was probably scheduled when you signed-up for surgery in the office. If you have any questions call More detailed instructions as well as Frequently Asked Questions were provided in a folder by our office when you signed-up for surgery. Please review these instructions when you get home. If you have any further questions or concerns, please feel free to call the office at [phone] Pending Studies at Discharge: No Stand-Alone Forms: My [facility], Smoking Cessation Medications and DC Order Prescriptions: New celecoxib [Celebrex] 200 mg capsule 200 mg PO Q12H PRN (Reason: pain) Qty: 30 0RF cefadroxil 500 mg capsule 500 mg PO BID 10 Days Qty: 20 0RF oxycodone-acetaminophen [Percocet] 5-325 mg tablet 1 tab PO Q6H PRN (Reason: pain) Qty: 30 0RF Continued multivitamin Tablet 1 tab PO QAM Discharge Orders: Discharge Order (Routine); Ordered 08/01/23 Ordered By: Ho Barrera Admission Data Admit Date/Time: 07/31/23 10:34 Attending Provider: Ho Barrera Admit Provider: Ho Barrera Primary Care Provider: Berenice Mcdermott Other Providers: Darren Cano; Juan Saeed; Inder England; Reji Dumont; Manuelito Powell; Hans King Jr; Ernie Israel; Nancy Lobo; Sharda Solorzano; Miguel Angel Melendez; Miguel Angel Marks; Francesco Oh; Deyanira Alvarado; Deacon Pabon; Rossy Jang; Asif Patel; Abdoulaye Vyas; Manny Chan; Nitish Augustine
[2023-08-01] MEDS: MULTIVITAMIN TAB PO SCH (08:38)
[2023-08-01] MEDS: dexAMETHasone 4 MG TAB PO SCH (08:38)
[2023-08-01] MEDS ORDERED: NON-FORMULARY MEDICATION (Multivitamin Tablet) PO SCH (09:00)
--- NOTE | 2023-08-01 11:42 | Hospitalist Progress Note ---
Date of Service August 01, 2023 Assessment & Plan (1) Acute electrocardiogram changes: Plan: Trops normal, ECHO normal - Repeat EKG improved. QTc has normalized. No ischemic changes. - Asymptomatic. Continues to do well 07/31. No electrolye abnormalities. - Likely due to anesthesia. No additional treatment/diagnostics recommended at this time -Medicine will sign off, okay to discharge from a medicine standpoint when ready per primary team (2) Osteoarthritis of right shoulder: Plan: S/p right TKA 07/31/2023 S/p interscalene block and general with reversal. Has not yet had sensation/strength return to the right arm/hand No intraoperative complications Postoperatively with concerns for EKG ST changes with associated tachycardia. Improved. Managed as noted Pain control, DVT prophylaxis, activity recommendations per primary team (3) Status post total replacement of left shoulder: Plan: Noted. Patient did not have any anesthetic complications or EKG changes noted at time of her left shoulder replacement in February Admission and Anticipated Discharge Date Admission Date: July 31, 2023 Amandeep Saleem is seen at the bedside. She feels well. She has had no chest pain, chest pressure, shortness of breath, lightheadedness, dizziness overnight. The numbness in her right hand has completely resolved. She is in no pain. She is in good spirits, feels well, and feels ready to return home. Physical Exam Physical Exam: General: A&Ox3. NAD. Cooperative. HEENT: Atraumatic, normocephalic. Vision/hearing intact. Pupils equal. Pulm: CTAB A&P. -wheezes, -rales, -rhonchi. Symmetrical chest rise. No increased work of breathing. No respiratory distress. Cardiac: RRR, -mrg. Radial pulses intact and symmetrical. Ext: LE warm and dry bilaterally no pitting edema. L hand with 5/5 dance critic strength, intact sensation to soft tough. Right hand is now with full dance critic strength and full sensation. Results & Data Results & Data Vital Signs (Past 12 Hours) Vital Signs Temp Pulse Pulse Pulse Resp BP Pulse Ox 08/01/23 11:24 37.0 C 106 H 87 18 102/63 96 08/01/23 09:00 81 08/01/23 08:18 37.0 C 87 18 102/63 96 08/01/23 03:07 36.6 C 75 16 93/60 L 98 O2 Del Method 08/01/23 11:24 08/01/23 09:00 08/01/23 08:18 Room Air 08/01/23 03:07 Room Air PG Care Time/CCT Total # of Minutes Spent Total Time Spent with Patient: Total time spent is greater than 50% in coordination of care (as documented) at patient's floor/unit and/or counseling patient: Coding Level of Care Code 39712 SUB INP/OBS CARE 2/35MIN Diagnoses Acute electrocardiogram changes R94.31 Osteoarthritis of right shoulder M19.011 Status post total replacement of left shoulder Z96.612
--- NOTE | 2023-08-01 16:57 | Electrocardiogram Report ---
Test Reason : Blood Pressure : / mmHG Vent. Rate : 072 BPM Atrial Rate : 072 BPM P-R Int : 166 ms QRS Dur : 086 ms QT Int : 362 ms P-R-T Axes : 053 053 021 degrees QTc Int : 396 ms Normal sinus rhythm Normal ECG When compared with ECG of 31-JUL-2023 17:02, QT has shortened Confirmed by Miguel Angel Marks ([id number]) on 08/01/2023 4:57:27 PM Referred By: Ho Barrera Confirmed By:Calvin Mraks
== END 2023-08-01 13:18 | disposition home health service (06) ==
LOC: ASU 05:08 → 2N 05:08